=== PATIENT | female | born 1980 | race African-American/Black ===

== ENCOUNTER 2021-02-09 13:51 | Inpatient (IN) | payer BC ==
[~2021-02-09] VITALS: Ht 162.6 cm; Wt 64.9 kg
[2021-02-09 14:14] VITALS: BP 100/76
[2021-02-09 14:18] LABS: ABSOLUTE MONOCYTES 0.3 thou/uL (0.0-1.2); ABSOLUTE NEUTROPHILS 2.2 thou/uL (1.6-8.1); BASOPHILS 0.2 %; EOSINOPHILS 0.2 %; HEMATOCRIT 33.5 % (37.0-47.0); HEMOGLOBIN 11.7 gm/dL (12.0-15.0); LYMPHOCYTES 28.8 %; MCH 28.4 pg (26.0-34.0); MCV 81.1 fL (80.0-100.0); MONOCYTES 9.1 %; MPV 6.3 fl. (7.2-11.1); NUCLEATED RBCS 0 /100WBC; PLATELET COUNT* 264 thou/uL (150-400); POLYS 61.7 %; RBC 4.13 mil/uL (4.20-5.00); WBC 3.6 thou/uL (4.0-11.0)
[2021-02-09] MEDS ORDERED: METRONIDAZOLE500 M4 PO (14:18)
[2021-02-09] MEDS ORDERED: NEURONTIN 300M300 M2 PO (14:18)
[2021-02-09 14:22] LABS: CALCIUM 8.2 mg/dL (8.5-10.1); CREATININE 0.8 mg/dL (0.6-1.3)
[2021-02-09 14:23] LABS: POTASSIUM 2.9 mmol/L (3.5-5.1)
[2021-02-09 14:26] LABS: ALBUMIN 3.1 g/dL (3.4-5.0); TOTAL BILIRUBIN 0.4 mg/dL (<0.1-1.0); TOTAL PROTEIN 7.3 g/dL (6.4-8.2)
[2021-02-09 16:11] LABS: MAGNESIUM 1.8 mg/dL (1.8-2.4); PHOSPHORUS* 2.3 mg/dL (2.5-4.9)
[2021-02-09 16:58] VITALS: BP 119/74
[2021-02-09 17:43] VITALS: BP 108/75
[2021-02-09] MEDS ORDERED: FEMARA2.5 MG PO (18:04)
--- NOTE | 2021-02-09 19:41 | NUR ---
A&OX 4, PWD. FEVER OF 101.7 AND 650MG TYLENOL GIVEN PO. POTASSIUM 2.9 AND 40MEQ GIVEN PO. MAG 1.8 AND PT RECEIVED 400MG PO. LUNGS DIMINISHED THROUGHOUT. ON RA WITH 02 SAT 95%. SR HEART RATE IN 80'S. HAD BM YESTERDAY. +BS. STATED SHE FELT LIKE HER STOMACH WAS BLOATING. UP AND ASSISTED TO BATHROOM. PT HAS STEADY GAIT. PT STATED SHE DOES HAVE NEUROPATHY IN HER FEET AND SHE OCC. USES CANE AT HOME. INFORMED PT IF SHE IS DIZZY OR HAVING ISSUES WITH HER FEET TO CALL FOR ASSISTANCE TO GET UP AND PT VERBALIZED UNDERSTANDING. NON-PRODUCTIVE COUGH NOTED. NO C/O PAIN. WILL CONTINUE TO MONITOR.
[2021-02-09 19:50] VITALS: BP 104/65
--- NOTE | 2021-02-09 23:29 | NUR ---
ASSUMED CARE OF PT AT 1900. PT IS ALERT AND ORIENTED. VSS. PERFA[place]. PT IS ON ROOM AIR. PT IS IN SINUS RYTHM ON THE TELEMETRY. PT IS RESTING COMFORTABLY IN BED. RESPIRATIONS ARE EVEN AND NONLABORED. WILL CONTINUE TO MONITOR PT.
[2021-02-09 23:58] VITALS: BP 106/72
[2021-02-10 04:05] VITALS: BP 126/78
[2021-02-10 06:05] LABS: ABSOLUTE MONOCYTES 0.4 thou/uL (0.0-1.2); ABSOLUTE NEUTROPHILS 2.3 thou/uL (1.6-8.1); BASOPHILS 0.3 %; HEMATOCRIT 31.5 % (37.0-47.0); LYMPHOCYTES 26.8 %; MCH 28.1 pg (26.0-34.0); MCHC 34.9 g/dL (28.0-37.0); MCV 80.5 fL (80.0-100.0); MONOCYTES 10.2 %; MPV 6.5 fl. (7.2-11.1); NUCLEATED RBCS 0 /100WBC; PLATELET COUNT* 284 thou/uL (150-400); POLYS 62.7 %; RBC 3.92 mil/uL (4.20-5.00); RDW-CV 13.1 % (10.5-14.5); WBC 3.7 thou/uL (4.0-11.0)
[2021-02-10 06:15] LABS: CALCIUM 8.2 mg/dL (8.5-10.1); CREATININE 0.6 mg/dL (0.6-1.3)
[2021-02-10 06:18] LABS: POTASSIUM 4.2 mmol/L (3.5-5.1)
[2021-02-10 09:24] VITALS: BP 104/76
[2021-02-10 11:24] LABS: URINE BILIRUBIN NEGATIVE (Negative); URINE BLOOD NEGATIVE (Negative); URINE CLARITY CLEAR; URINE COLOR YELLOW; URINE GLUCOSE-RANDOM NEGATIVE (Negative); URINE LEUKOCYTES-REFLEX NEGATIVE (Negative); URINE NITRITE-REFLEX NEGATIVE (Negative); URINE PROTEIN NEGATIVE (Negative); URINE UROBILINOGEN 0.2 E.U./dl (0.2-1.0)
[2021-02-10 11:29] LABS: URINE KETONES 3+ (Negative)
--- NOTE | 2021-02-10 15:02 | NUR ---
CM ASSESSMENT: PT COVID POSITIVE AND CURRENTLY UNDER ENHANCED PRECAUTIONS. PT A&O, INDEPENDENT WITH ADL'S, AND ACTIVE. PT USES 0 DME. PT HAS 0 HX OF HH OR SNF. PT INFORMS THAT HER PCP IS [facility]. PT CURRENTLY ON ROOM AIR. CM D/C PLANNING NEEDS TBD AT THIS TIME. PT COMPLETED DPOA PAPERWORK. CM PROVIDED PT COPIES AND COPY PLACED ON CHART. CM WILL REMAIN AVAILABLE TO ASSIST AND FOLLOW NEEDED.
[2021-02-10 15:20] VITALS: BP 132/68
[2021-02-10 20:00] VITALS: BP 110/71
[2021-02-11] VITALS (7 sets, daily range): BP systolic 96–117; BP diastolic 65–89
[2021-02-11 06:43] LABS: ABSOLUTE BASOPHILS 0.1 thou/uL (0.0-0.2); ABSOLUTE LYMPHOCYTES 1.6 thou/uL (0.8-5.3); ABSOLUTE NEUTROPHILS 7.6 thou/uL (1.6-8.1); BASOPHILS 0.6 %; EOSINOPHILS 0.1 %; HEMATOCRIT 30.5 % (37.0-47.0); HEMOGLOBIN 10.5 gm/dL (12.0-15.0); LYMPHOCYTES 15.9 %; MCH 27.8 pg (26.0-34.0); MCHC 34.4 g/dL (28.0-37.0); MCV 80.7 fL (80.0-100.0); MONOCYTES 9.5 %; MPV 6.5 fl. (7.2-11.1); NUCLEATED RBCS 0 /100WBC; PLATELET COUNT* 354 thou/uL (150-400); POLYS 73.9 %; RBC 3.77 mil/uL (4.20-5.00); RDW-CV 13.4 % (10.5-14.5); WBC 10.2 thou/uL (4.0-11.0)
--- NOTE | 2021-02-11 07:05 | NUR ---
CHANGE OF SHIFT REPORT GIVEN PATIENT SEEN AT BEDSIDE, IN BED RESTING ASSUMED PATIENT CARE
[2021-02-11 07:18] LABS: ALBUMIN 2.8 g/dL (3.4-5.0); CALCIUM 8.1 mg/dL (8.5-10.1); CREATININE 0.6 mg/dL (0.6-1.3); POTASSIUM 3.6 mmol/L (3.5-5.1); TOTAL BILIRUBIN 0.2 mg/dL (<0.1-1.0); TOTAL PROTEIN 6.8 g/dL (6.4-8.2)
[2021-02-12 00:11] VITALS: BP 120/74
[2021-02-12 04:11] VITALS: BP 122/82
--- NOTE | 2021-02-12 07:25 | NUR ---
CHANGE OF SHIFT BEDSIDE REPORT GIVEN PATIENT SEEN AT BEDSIDE, IN BED RESTING ASSUMED PATIENT CARE
[2021-02-12 08:00] VITALS: BP 111/71
[2021-02-12] MEDS ORDERED: DOXYCYCLINE 10100 MG PO (09:52)
[2021-02-12] MEDS ORDERED: PROTONIX40 M2 PO (09:52)
[2021-02-12] MEDS ORDERED: DEXAMETHASONE1 MG PO (09:52)
[2021-02-12 12:00] VITALS: BP 96/68
[2021-02-12 16:00] VITALS: BP 97/64
[2021-02-12 18:22] VITALS: BP 97/64
--- NOTE | 2021-02-12 19:38 | NUR ---
patient discharged to home today ride burr picker will be at 2015 heart monitor and o2 sat monitor removed r chest port deaccessed discharge paperwork given
--- NOTE | 2021-02-13 16:40 | CON ---
[address] [address] CONSULTATION Name: PJ DEVINE Room: [address]#: [id number] Admission: 02/09/21 Attend Phys: Olman Mendez MD Discharge: 02/12/21 Date of : 76 Report #: [id number] THIS REPORT FOR: cc: FAM - No family physician/PCP FAM - No family physician/PCP Bjorn Villar MD ~ DATE OF CONSULTATION: 02/10/2021 REQUESTING PHYSICIAN: Olman Mendez MD. INDICATION FOR CONSULTATION: COVID-19. HISTORY OF PRESENT ILLNESS: A 40-year-old female has a history of ovarian cancer, which is currently in remission; presented with cough with clear as well as yellow sputum and a high-grade fever up to 38.7 degrees Celsius and was noted to be positive for COVID-19 antigen. Her is also admitted with COVID-19. She is reported to be dizzy and having diarrhea on admission and did have a potassium decreased to 2.9. The patient's blood pressure has been on the lower side at around 104/76, but has been maintained. The patient currently is not requiring supplemental oxygen. There is no swelling of lower extremities or calf pain. REVIEW OF SYSTEMS: A 12 points is negative except as mentioned above. PAST MEDICAL HISTORY: Ovarian cancer, currently in remission, I do not have details available; hysterectomy; and neuropathy. SOCIAL HISTORY: No known history of smoking, ethanol abuse, or drug abuse. CURRENT MEDICATIONS: List in [facility] reviewed. HOME MEDICATIONS: In [facility] reviewed. ALLERGIES: No known drug allergies. FAMILY HISTORY: is also admitted with COVID-19. PHYSICAL EXAMINATION: GENERAL: Alert, awake, and oriented, does not appear to be in any distress at this time. VITAL SIGNS: Has a pulse of 66 and a blood pressure of 132/68. She is saturating 98%. She is not on supplemental oxygen. Yesterday, she had a temperature of 38.7. This is improved to 36.8 now. Body mass index is 25. HEENT: Head is normocephalic and atraumatic. NECK: Does [place] [address] CONSULTATION Name: PJ DEVINE Room: [address]#: [id number] Admission: 02/09/21 Attend Phys: Olman Mendez MD Discharge: 02/12/21 Date of : 76 Report #: [id number] CHEST: Clear to auscultation. HEART: Regular. No murmur. ABDOMEN: Soft and nontender. EXTREMITIES: Lower extremities show no edema and no calf tenderness. IMAGING DATA: The patient's chest x-ray shows a radiopaque density at the left lung base. This is consistent with a pleural effusion with an infiltrate. Atelectasis can also lead to this picture, but appears to be unlikely. The patient's lab work is in [facility] and this is reviewed. The patient does have mild leukopenia. ASSESSMENT AND PLAN: 1. COVID-19. We will treat it with dexamethasone at 6 mg daily. She is maintaining O2 saturation on room air; however had a high-grade fever yesterday and also does have a history of ovarian cancer and therefore appeared to be higher than average risk for progression and this is the reason that I ordered remdesivir. Certainly, remdesivir could be discontinued sooner than planned; planned if the patient continues to improve. Follow LFTs while on remdesivir. 2. Pulmonary infiltrates/left lower lobe opacity. There is an opacity at the left lung base. I suspect this is likely a small infiltrate with pleural effusion. Atelectasis can lead to this picture; however, it appears to be unlikely. This finding is not typical for viral infiltrates and suspicious of secondary bacterial infection. It is for this reason that I continued ceftriaxone, which was initially started in the ER. Nasal swab for MRSA was sent and is negative. If the sputum could be obtained, then we will recommend the same as well. We will repeat a chest x-ray tomorrow. If doubt in this regard remains, then a CT chest could be obtained later. 3. History of ovarian cancer. 4. Deep venous thrombosis prophylaxis, Lovenox. 5. Clostridium difficile prophylaxis, Lactinex. Thanks for this consultation. <ELECTRONICALLY SIGNED> By: Bjorn Villar MD 02/13/21 [id number] Villar MD /nt
== END 2021-02-12 20:45 | disposition home or self-care (01) | DRG 871 ==
LOC: M.ERS 13:51 → M.ORTHSURG 14:55 → M.TBA-ER 14:55 → M.ORTHSURG 17:30
PROVIDERS: Family Medicine; Internal Medicine Critical Care Medicine; ADMIT Internal Medicine; ATTEND Internal Medicine
PROC: XW033E5 Introduction of Remdesivir Anti-infective into Peripheral Vein, Percutaneous Approach, New Technology Group 5 (ICD-10-PCS; principal; 2021-02-09)
DX: A41.89 Other specified sepsis (principal); U07.1 COVID-19; J12.82 Pneumonia due to coronavirus disease 2019; G62.9 Polyneuropathy, unspecified; E87.6 Hypokalemia; Z79.899 Other long term (current) drug therapy; Z85.43 Personal history of malignant neoplasm of ovary; Z90.710 Acquired absence of both cervix and uterus